=== PATIENT | female | born 1995 | race Caucasian/White ===

== ENCOUNTER 2017-10-02 14:04 | Outpatient (CLI) | payer OTHER | END 2017-10-02 14:20 | disposition home or self-care (01) | LOC: SONOGRAMA 14:04 | DX: N60.11 Diffuse cystic mastopathy of right breast (principal); N60.12 Diffuse cystic mastopathy of left breast ==

== ENCOUNTER 2017-11-27 06:40 | Day surgery (SDC) | payer OTHER | END 2017-11-27 17:35 | disposition home or self-care (01) | LOC: CIR.AMB 06:40 | DX: D24.2 Benign neoplasm of left breast (principal); N60.22 Fibroadenosis of left breast ==